=== PATIENT | male | born 1945 | race Caucasian/White ===

== ENCOUNTER 2019-01-20 09:38 | Emergency (ER) | payer MEDICARE ==
[~2019-01-20] VITALS: Ht 177.8 cm; Wt 90.9 kg
[2019-01-20 10:07] LABS: BASO % 0.4 % (0.0-2.0); EOS # 0.1 (0.0-0.7); EOS % 1.3 % (0-4.0); GRAN # 4.7 (1.4-6.5); GRAN % 67.4 % (42.2-75.2); HEMATOCRIT 38.6 % (42.0-52.0); HEMOGLOBIN 13.2 g/dl (13.5-18.0); LYMPH # 1.4 (1.2-3.4); LYMPH % 20.1 % (20.0-51.0); MEAN CELL VOLUME 100 fl (80.0-100.0); MEAN CORPUSCULAR HEMOGLOBIN 34 pg (27.0-31.0); MEAN CORPUSCULAR HGB CONC 34 g/dl (33.0-37.0); MEAN PLATELET VOLUME 10.1 fl (7.4-10.4); MONO # 0.7 (0.1-0.6); MONO % 10.1 % (1.7-9.3); PLATELET COUNT 182 K/mm3 (130-400); RED BLOOD COUNT 3.88 M/mm3 (4.20-5.60); REDCELL DISTRIBUTION WIDTH-CV 12.8 % (11.5-14.5)
[2019-01-20 10:11] LABS: INR 0.9 (0.8-3.0); PROTHROMBIN TIME 10.7 SECONDS (9.7-12.8)
[2019-01-20 10:18] LABS: BILIRUBIN,TOTAL 0.7 mg/dL (0.0-1.0); CALCIUM 9.3 mg/dL (8.4-10.2); CREATININE, serum 1.15 (0.66-1.25); TOTAL PROTEIN 7.2 gm/dL (6.4-8.2)
[2019-01-20] MEDS ORDERED: VOLTAREN 75 DR75 MG (10:30)
[2019-01-20] MEDS ORDERED: LIPITOR 40MG TA40 MG PO (10:31)
[2019-01-20] MEDS ORDERED: ZESTRIL 20MG TA20 MG PO (10:32)
[2019-01-20] MEDS ORDERED: VOLTAREN 50MG T50 MG PO (10:32)
[2019-01-20] MEDS ORDERED: ZYLOPRIM 300MG300 MG PO (10:33)
[2019-01-20] MEDS ORDERED: CENTRUM SILVER1 CTB PO (10:33)
[2019-01-20] MEDS ORDERED: FOLIC ACID800 MCG PO (10:34)
[2019-01-20] MEDS ORDERED: FLEXERIL 1010 MG/TAB PO (12:03)
[2019-01-20] MEDS ORDERED: ZOFRAN ODT8 MG PO (12:03)
[2019-01-20 12:33] VITALS: BP 183/96; PULSE 68; TEMP 96.9
== END 2019-01-20 12:40 | disposition home or self-care (01) ==
LOC: COL.ER 09:38
PROVIDERS: Emergency Medicine
DX: S00.03XA Contusion of scalp, initial encounter (principal); S40.011A Contusion of right shoulder, initial encounter; R40.2410 Glasgow coma scale score 13-15, unspecified time; W12.XXXA Fall on and from scaffolding, initial encounter; Y92.009 Unspecified place in unspecified non-institutional (private) residence as the place of occurrence of the external cause
CPT/HCPCS: J2270

== ENCOUNTER 2024-01-20 09:15 | Emergency (ER) | payer MEDICARE ==
[~2024-01-20] VITALS: Ht 177.8 cm; Wt 90.9 kg
[~2024-01-20 09:15] MED LIST: ASPIRIN 32325 MG/TAB PO; CENTRUM SILVER1 CTB PO; COREG 25MG25 MG/TAB PO; FLEXERIL 1010 MG/TAB PO; FOLIC ACID800 MCG PO; GLUCOSAMINE & C1 CA2 PO; HCTZ 25MG TAB25 MG PO; LIPITOR 40MG TA40 MG PO; NORVASC 5MG5 MG/TAB PO; VOLTAREN 50MG T50 MG PO; VOLTAREN 75 DR75 MG; ZESTRIL 20MG TA20 MG PO; ZESTRIL40 MG PO; ZOFRAN ODT8 MG PO; ZYLOPRIM 300MG300 MG PO
[2024-01-20 09:19] VITALS: TEMP 98
[2024-01-20] MEDS ORDERED: NS 500 ML IV ONE (10:00)
[2024-01-20 10:10] LABS: BASO # 0.1 K/mm3 (0.0-0.2); BASO % 0.7 % (0.0-2.0); EOS # 0.5 K/mm3 (0.0-0.7); EOS % 5.3 % (0.0-4.0); GRAN # 6.1 K/mm3 (1.4-6.5); GRAN % 68.6 % (42.2-75.2); HEMATOCRIT 37.7 % (42.0-52.0); HEMOGLOBIN 12.6 g/dl (13.5-18.0); LYMPH # 1.2 K/mm3 (1.2-3.4); LYMPH % 13.8 % (20.0-51.0); MEAN CELL VOLUME 101 fl (80.0-100.0); MEAN CORPUSCULAR HEMOGLOBIN 34 pg (27-31); MEAN CORPUSCULAR HGB CONC 33 g/dl (33.0-37.0); MEAN PLATELET VOLUME 10.8 fl (7.4-10.4); MONO % 11.2 % (1.7-9.3); PLATELET COUNT 146 K/mm3 (130-400); RED BLOOD COUNT 3.72 M/mm3 (4.20-5.60); REDCELL DISTRIBUTION WIDTH-CV 13.2 % (11.5-14.5)
[2024-01-20 10:25] LABS: ALBUMIN 3.3 g/dL (3.4-4.8); BILIRUBIN,TOTAL 0.4 mg/dL (0.2-1.2); C-REACTIVE PROTEIN 10.31 mg/dL (0.00-0.50); CALCIUM 9.1 mg/dL (8.4-10.2); CREATININE, serum 1.23 mg/dL (0.72-1.25); POTASSIUM 4.1 mEq/L (3.5-4.5); TOTAL PROTEIN 7.2 g/dl (6.2-8.1)
[2024-01-20] MEDS ORDERED: Iohexol 300 - 100 ML VIAL IV ONE (11:29)
[2024-01-20] MEDS ORDERED: NS 100 ML IV SCH (11:30)
[2024-01-20 14:25] VITALS: BP 159/88; PULSE 66
== END 2024-01-20 14:30 | disposition short-term general hospital (02) ==
LOC: COL.ER 09:15
PROVIDERS: Emergency Medicine
DX: H05.012 Cellulitis of left orbit (principal); J01.11 Acute recurrent frontal sinusitis
CPT/HCPCS: J0295; J7040; Q9967